=== PATIENT | male | born 1985 | race Caucasian/White ===

== ENCOUNTER 2018-04-11 11:49 | Emergency (ER) | payer OTHER ==
[~2018-04-11] VITALS: Ht 195.6 cm; Wt 108.9 kg
[~2018-04-11 11:49] MED LIST: NAPROSYN500 MG PO; NORCO 5-325 TA1 EACH PO; ONDANSETRON HCL4 M2 PO
[2018-04-11 12:08] LABS: URINE CLARITY CLEAR; URINE COLOR YELLOW
[2018-04-11 12:09] LABS: URINE BILIRUBIN NEGATIVE (Negative); URINE BLOOD TRACE (Negative); URINE GLUCOSE-RANDOM* NEGATIVE (Negative); URINE KETONES NEGATIVE (Negative); URINE LEUKOCYTES-REFLEX NEGATIVE (Negative); URINE NITRITE-REFLEX NEGATIVE (Negative); URINE PROTEIN (DIPSTICK) NEGATIVE (Negative); URINE SPECIFIC GRAVITY >= 1.030 (1.005-1.035); URINE UROBILINOGEN 0.2 E.U./dl (0.2-1.0)
[2018-04-11 12:28] LABS: AMP/METHAMP POSITIVE (Negative); BARBITURATES Negative (Negative); BENZODIAZEPINES Negative (Negative); COCAINE Negative (Negative); METHADONE Negative (Negative); OPIATES Negative (Negative); PCP Negative (Negative)
[2018-04-11 12:33] LABS: ABSOLUTE NEUTROPHILS 9.7 thou/uL (1.4-8.2); BASOPHILS 0.2 % (0.0-2.0); EOSINOPHILS 0.2 % (0.0-3.0); HEMATOCRIT 45.4 % (42.0-52.0); HEMOGLOBIN 15.2 gm/dL (14.0-18.0); LYMPHOCYTES 6.4 % (24.0-44.0); MCHC 33.5 g/dL (28.0-37.0); MCV 86.6 fL (80.0-100.0); MONOCYTES 8.3 % (1.0-8.0); PLATELET COUNT 202 thou/uL (150-400); POLYS 84.9 % (36.0-66.0); RBC 5.24 mil/uL (4.50-6.00); RDW 13.5 % (10.5-14.5); WBC 11.4 thou/uL (4.0-11.0)
[2018-04-11 12:40] LABS: CALCIUM 9.5 mg/dL (8.5-10.1); CREATININE 1.5 mg/dL (0.7-1.3)
[2018-04-11 12:41] LABS: POTASSIUM 4.4 mmol/L (3.5-5.1)
[2018-04-11 12:45] LABS: ALBUMIN 3.9 g/dL (3.4-5.0); TOTAL BILIRUBIN 0.6 mg/dL (<0.1-1.0); TOTAL PROTEIN 7.9 g/dL (6.4-8.2)
[2018-04-11] MEDS ORDERED: NORCO 5-325 TA1 EACH PO (13:58)
[2018-04-11] MEDS ORDERED: FLOMAX0.4 MG PO (13:58)
[2018-04-11] MEDS ORDERED: ZOFRAN ODT4 MG PO (13:58)
[2018-04-11 14:00] VITALS: BP 162/79
== END 2018-04-11 14:07 | disposition home or self-care (01) ==
LOC: ER 11:49
PROVIDERS: Physician Assistant
DX: N20.0 Calculus of kidney (principal); J45.909 Unspecified asthma, uncomplicated

== ENCOUNTER 2019-03-17 06:56 | Emergency (ER) | payer OTHER ==
[~2019-03-17] VITALS: Ht 195.6 cm; Wt 117.9 kg
[~2019-03-17 06:56] MED LIST changes: +FLOMAX0.4 MG PO; +ZOFRAN ODT4 MG PO
[2019-03-17] MEDS ORDERED: ALBUTEROL2.5 MG/0.1 INH (07:32)
[2019-03-17] MEDS ORDERED: IBUPROFEN 600600 M1 PO (08:10)
[2019-03-17] MEDS ORDERED: NORCO 5-325 TA1 EAC1 PO (08:10)
[2019-03-17] MEDS ORDERED: SENNA-DOCUSATE1 EAC1 PO (08:10)
[2019-03-17 08:53] VITALS: BP 151/98
== END 2019-03-17 08:55 | disposition home or self-care (01) ==
LOC: ER 06:56
DX: S82.61XA Displaced fracture of lateral malleolus of right fibula, initial encounter for closed fracture (principal); J45.909 Unspecified asthma, uncomplicated; F17.210 Nicotine dependence, cigarettes, uncomplicated; Z88.1 Allergy status to other antibiotic agents; W18.40XA Slipping, tripping and stumbling without falling, unspecified, initial encounter; Y92.89 Other specified places as the place of occurrence of the external cause; Y93.89 Activity, other specified; Y99.8 Other external cause status